=== PATIENT | male | born 1945 | race Caucasian/White ===

== ENCOUNTER → 2016-10-16 | Outpatient (CLI) | payer BC ==
[2016-10-16 09:43] LABS: CHLORIDE,CL 104 mmol/L (98-110); SODIUM,NA 142 mmol/L (136-146)
== END ==
LOC: MW.CHFP 08:45
PROVIDERS: ATTEND Physician Assistant
DX: Z01.818 Encounter for other preprocedural examination (principal)
CPT/HCPCS: 36415; 80048; 81001; 85027; 87070; 87086; 93005

== ENCOUNTER → 2016-10-22 | Outpatient (CLI) | payer BC, MEDICARE | LOC: MW.CHFP 16:02 | PROVIDERS: ATTEND Physician Assistant | DX: Z01.818 Encounter for other preprocedural examination (principal) | CPT/HCPCS: 36415; 82040 ==

== ENCOUNTER 2022-05-28 06:00 | Day surgery (SDC) | payer BC ==
[2022-05-28] MEDS ORDERED: Propofol 200 MG/20 ML SDV ONE (07:37)
[2022-05-28] MEDS ORDERED: fentaNYL 100 MCG/2 ML SDV ONE (07:38)
[2022-05-28] MEDS ORDERED: Lidocaine 2% 5 ML SDV ONE (07:38)
[2022-05-28] MEDS ORDERED: Lactated Ringers 1,000 ML IV ONE (09:10)
== END 2022-05-28 09:50 ==
LOC: MW.SDS 06:00
PROVIDERS: ATTEND Surgery
DX: K31.9 Disease of stomach and duodenum, unspecified (principal); I10 Essential (primary) hypertension; E78.5 Hyperlipidemia, unspecified; R73.03 Prediabetes; E83.42 Hypomagnesemia; Z79.899 Other long term (current) drug therapy; Z88.6 Allergy status to analgesic agent; Z79.82 Long term (current) use of aspirin; Z98.890 Other specified postprocedural states
CPT/HCPCS: 43239; J2704; J3010; J7120; 00731; 99100